=== PATIENT | female | born 1935 | race Caucasian/White ===

== ENCOUNTER 2018-01-06 10:27 | Emergency (ER) | payer MEDICARE, OTHER ==
[2018-01-06 13:06] LABS: #Eosinphils 0.3 thou/uL (0.0-0.7); #Lymphocytes 2.1 thou/uL (1.20-3.40); #Monocytes 0.6 thou/uL (0.11-0.59); #Neutrophils 4.4 thou/uL (1.40-6.50); %Basophils 0.6 % (0.0-1.0); %Lymphocytes 28.1 % (21.0-51.0); %Monocytes 8.4 % (0.0-10.0); %Neutrophils 58.9 % (42.0-75.0); Mean Corpuscular HGB CONC 33.7 g/dL (32.0-36.0); Mean Corpuscular Hemoglobin 31.4 pg (27.0-31.0); Mean Corpuscular Volume 93.4 fL (78.0-98.0); Mean Platelet Volume 6.6 fL (7.4-10.4); Platelet Count 273 thou/uL (130-400); RBC Distribution Width 12.5 % (11.5-14.5); Red Blood Cell (RBC) Count 4.46 mill/uL (4.20-5.40); White Blood Cell (WBC) Count 7.5 thou/uL (4.8-10.8)
--- NOTE | 2018-01-06 13:18 | CT ---
CT ABDOMEN AND PELVIS WITHOUT IV CONTRAST: Indication: Right lower back pain and flank pain. Comparison: None. FINDINGS: There is bibasilar atelectasis. Unopacified liver, spleen, pancreas and adrenal glands appear within normal limits. There is a tiny 1 -2 mm nonobstructing stone involving the inferior pole of the left kidney. No hydronephrosis is evide nt. There is a mild amount of retained stool within the colon. There is scattered diverticula involving t he colon without evidence of active diverticulitis. The appendix is not definitely visualized. Small bowel is of normal caliber. There is a small fat containing umbilical hernia. No free fluid is eviden t. Beam scattered artifact from patient's right total hip prosthesis slightly limits image detail. Th ere is extensive posterior lumbar intraspinal construct involving the L3 through S1 vertebral levels. There is thoracolumbar scoliosis present. There is diffuse osteopenia. There is a dorsal column stim ulator overlying the mid to lower thoracic spine. No acute fracture is evident. IMPRESSION: 1. No CT explanation for the patient's right flank pain. 2. No ureteral calculus or hydronephrosis demonstrated. There is a small punctate nonobstructing calc ulus involving the inferior pole of the left kidney. 3. There is mild bibasilar atelectasis. 4. Mild colonic diverticulosis without evidence of active diverticulitis. 5. Chronic osseous changes as above. POS: SILVINO
[2018-01-06 13:28] LABS: ALT (SGPT) Less than 7 U/L (8-55); AST (SGOT) 11 U/L (5-34); Albumin 3.9 g/dL (3.4-4.8); Alkaline Phosphatase 114 U/L (40-150); Anion Gap 9 mmol/L (10-20); BUN (Urea Nitrogen) 10 mg/dL (9.8-20.1); Bilirubin, Total 0.8 mg/dL (0.2-1.2); Calc. Creatinine Clearance 0 mL/min (70-130); Calcium 9.3 mg/dL (7.8-10.44); Carbon Dioxide 25 mmol/L (23-31); Chloride 111 mmol/L (98-107); Estimated GFR-MDRD 67; Globulin 2.5 g/dL (2.4-3.5); Glucose 96 mg/dL (83-110); Potassium 4.3 mmol/L (3.5-5.1); Protein, Total 6.4 g/dL (6.0-8.3); Sodium 141 mmol/L (136-145)
[2018-01-06] MEDS ORDERED: Lidocaine 4% Cream 5 GM TUBE w/ Tegaderm ONE (13:28)
[2018-01-06 13:57] LABS: Bilirubin Negative (Negative); Blood, Urine Negative (Negative); Clarity CLOUDY (Clear); Glucose, Urine (Dipstick) Negative (Negative); Leukocyte Negative (Negative); Nitrite Negative (Negative); Protein, Urine (Dipstick) Negative (Neg-Trace); Specific Gravity, Urine 1.019 (1.002-1.036); Urobilinogen 0.2 mg/dL (0.2-1.0); pH, Urine 7.5 (5.0-9.0)
[2018-01-06] MEDS ORDERED: Ketorolac Tromethamine 30 MG/ML VIAL ONE (15:36)
== END 2018-01-06 15:55 | disposition home or self-care (01) ==
LOC: ERS 10:27
DX: M46.1 Sacroiliitis, not elsewhere classified (principal); M54.5 Low back pain; I10 Essential (primary) hypertension; Z79.899 Other long term (current) drug therapy
CPT/HCPCS: 36415; 74176; 80053; 81003; 85025; 96374; J1885